=== PATIENT | female | born 1970 | race Caucasian/White ===

== ENCOUNTER 2019-09-02 10:00 | Emergency (ER) | payer OTHER ==
[~2019-09-02] VITALS: Ht 167.6 cm; Wt 60.4 kg
[2019-09-02] MEDS ORDERED: DEXAMETHASONE 4 MG/ML, 1ML PO ONE (10:30)
[2019-09-02] MEDS ORDERED: DEXAMETHASONE 4 MG/ML, 1ML ONE (11:16)
--- NOTE | 2019-09-02 11:27 | NUR ---
Pt c/o pain in esophagus s/p having "food stuck" a few days ago that has since cleared. Pt is able to speak in full sentences, maintain own secreations, and maintain oxygen saturation above 96%. NADN. No other needs expressed. Pt decribes pain when swallowing. Call light within reach and friend at bedside. No other needs expressed. Pt provided medications per [facility].
[2019-09-02 11:37] LABS: BASOPHILS # (AUTO) 0.02 x10^3/uL (0-0.1); BASOPHILS % (AUTO) 0 % (0-1); EOSINOPHILS # (AUTO) 0.12 x10^3/uL (0-0.4); EOSINOPHILS % (AUTO) 2 % (1-7); LYMPHOCYTES # (AUTO) 1.87 x10^3/uL (1-3.4); LYMPHOCYTES % (AUTO) 25 % (22-44); MD NO; MEAN CORPUSCULAR HEMOGLOBIN 30.5 pg (27.0-34.8); MEAN CORPUSCULAR HGB CONC 33.3 g/dL (32.4-35.8); MEAN CORPUSCULAR VOLUME 91.6 fL (80-100); MEAN PLATELET VOLUME 8.1 fL (7.4-10.4); MONOCYTES # (AUTO) 0.78 x10^3/uL (0.2-0.8); MONOCYTES % (AUTO) 10 % (2-9); NEUTROPHILS % (AUTO) 63 % (42-75); PLATELET COUNT 411 x10^3/uL (130-400); RED BLOOD COUNT 4.76 x10^6/uL (3.82-5.3); RED CELL DISTRIBUTION WIDTH 12.8 % (9.6-15.2)
[2019-09-02 11:50] LABS: ALBUMIN 3.7 g/dL (3.4-5.0); ANION GAP 7 mmol/L (5-15); CALCIUM 9.4 mg/dL (8.5-10.1); CHLORIDE 105 mmol/L (98-107)
--- NOTE | 2019-09-02 11:52 | NUR ---
Pt transported on gurney to radiology from ED. KEONN. Provided report to JESSICA Chambers. All questions answered. JESSICA Chambers to assume care of pt at this time.
--- NOTE | 2019-09-02 11:52 | NUR ---
RECEIVED REPORT FROM JOAN LOPEZ. ASSUMING CARE AT THIS TIME.
[2019-09-02 11:53] LABS: ALANINE AMINOTRANSFERASE 22 U/L (12-78); ALKALINE PHOSPHATASE 60 U/L (45-117); BILIRUBIN, DIRECT 0.1 mg/dL (0.1-0.2); BILIRUBIN,INDIRECT 0.6 mg/dL (0.0-2.0); BILIRUBIN,TOTAL 0.7 mg/dL (0.2-1.0); CREATININE 0.88 mg/dL (0.55-1.02); TOTAL PROTEIN 7.9 g/dL (6.4-8.2)
--- NOTE | 2019-09-02 12:42 | NUR ---
ALL RESULTS ARE BACK AT THIS TIME. CHART UP FOR RECHECK.
[2019-09-02 12:45] VITALS: BP 109/69
--- NOTE | 2019-09-02 12:47 | NUR ---
PT RESTING COMFORTABLY ON GURNEY. FRIEND AT BEDSIDE.
--- NOTE | 2019-09-02 13:22 | NUR ---
MD AT BEDSIDE TO UPDATE PT ON POC.
== END 2019-09-02 13:53 | disposition home or self-care (01) ==
LOC: ED 13:17
DX: K21.0 Gastro-esophageal reflux disease with esophagitis (principal)
CPT/HCPCS: 36415; 70360; 74220; 80048; 80076; 82040; 85025; 93005; 99284; J1100